=== PATIENT | female | born 1980 | race Caucasian/White ===

== ENCOUNTER 2021-12-14 13:19 | Outpatient (REF) | payer BC, SELFPAY ==
--- NOTE | 2021-12-14 11:00 | PAPFT_PTH ---
PATIENT: Jenny King LOC: [facility]#:[id number] AGE/SX: 41/F ROOM: RE12/14/[address]: Aniya Clark : 1980 BED: DIS: 12/14/2021 SPEC #: [id number] RECD: 12/14/21 18:22 STATUS: SHAZIA REIrlanda #: [id number] VENTURA: 12/14/21 11:[address]: Aniya Clark DEPT: [facility] Cytology RECD BY: Areli Parnell Tissues: 1 - CX/ENDOCX FOR PAP SMEARS Procedures: PAP THIN PREP/[facility] Screening HPV DNA PROBE Comments: [id number] (CHLAMYDIA/GC)
[2021-12-15 15:13] LABS: Chlamydia Result Negative (Negative); GC Result Negative (Negative)
== END 2021-12-14 13:20 | disposition home or self-care (01) ==
LOC: NCHCN 13:19
PROVIDERS: Visit Provider Registered Nurse
DX: Z12.4 Encounter for screening for malignant neoplasm of cervix (principal); Z11.51 Encounter for screening for human papillomavirus (HPV); Z11.3 Encounter for screening for infections with a predominantly sexual mode of transmission
CPT/HCPCS: 87491; 87591; 88142; 87624

== ENCOUNTER 2021-12-14 14:22 | Outpatient (REF) | payer BC, SELFPAY | END 2021-12-14 14:23 | disposition home or self-care (01) | LOC: NCHCN 14:22 | PROVIDERS: Visit Provider Registered Nurse ==

== ENCOUNTER 2022-05-18 14:08 | Outpatient (REF) | payer BC, SELFPAY ==
[2022-05-18 21:36] LABS: Abs Immature Grans 0.01 10^3/uL (0.0-0.06); Absolute Basophil Count 0.02 10^3/uL (0.0-0.2); Absolute Eosinophil Count 0.02 10^3/uL (0.0-0.7); Absolute Lymphocyte Count 1.19 10^3/uL (1.2-3.4); Absolute Monocyte Count 0.41 10^3/uL (0.1-0.8); Absolute Neutrophil Count 4.72 10^3/uL (1.2-6.7); Basophils % 0.3; Eosinophils % 0.3; HCT 38.6 % (36.0-46.0); HGB 12.8 g/dL (11.2-15.7); Immature Grans % 0.2; Lymphocytes % 18.7; MCH 31.6 pg (27.0-33.0); MCHC 33.2 % (32.0-36.0); MCV 95 fL (80-95); MPV 10.7 fL (8.0-11.0); Monocytes % 6.4; Neutrophils % 74.1; Platelet Count 258 10^3/uL (130-400); RBC 4.05 10^6/uL (3.93-5.22); RDW 12.3 % (11.7-14.6); RDW-SD 43.2 fL; WBC 6.37 10^3/uL (4.4-10.8)
[2022-05-18 22:13] LABS: ALT 15 U/L (14-59); AST 13 U/L (15-37); Albumin 4.2 g/dL (3.4-5.0); Alkaline Phosphatase 33 U/L (46-116); Anion Gap 9.7 mmol/L (3-11); BUN 13 mg/dL (7-18); Bilirubin, Total 0.4 mg/dL (0.2-1.0); CO2 26.3 mmol/L (21.0-32.0); CREATININE 0.7 mg/dL (0.55-1.02); Calcium 8.8 mg/dL (8.5-10.1); Chloride 106 mmol/L (98-107); Glucose 98 mg/dL (74-106); Potassium 3.9 mmol/L (3.5-5.1); Sodium 142 mmol/L (136-145); TSH 0.82 uIU/mL (0.36-3.74); Total Protein 7.5 g/dL (6.4-8.2)
== END 2022-05-18 14:09 | disposition home or self-care (01) ==
LOC: NCHCN 14:08
PROVIDERS: Visit Provider Registered Nurse
DX: R19.7 Diarrhea, unspecified (principal); R19.8 Other specified symptoms and signs involving the digestive system and abdomen
CPT/HCPCS: 80053; 84443; 85025

== ENCOUNTER 2022-05-25 15:05 | Outpatient (REF) | payer BC, SELFPAY ==
[2022-05-26 11:03] LABS: Campylobacter PCR Negative (Negative); Salmonella PCR Negative (Negative); Shiga Toxin PCR Negative (Negative); Shigella/Enteroinvasive Ecoli Negative (Negative)
== END 2022-05-25 15:06 | disposition home or self-care (01) ==
LOC: NCHCN 15:05
PROVIDERS: Visit Provider Registered Nurse
DX: R19.8 Other specified symptoms and signs involving the digestive system and abdomen (principal)
CPT/HCPCS: 87329; 87505; 83630